=== PATIENT | male | born 1945 | race Caucasian/White ===

== ENCOUNTER 2019-08-01 13:35 | Emergency (ER) | payer MEDICARE, MEDICAID ==
[~2019-08-01] VITALS: Ht 182.9 cm; Wt 122.7 kg
[2019-08-01 14:57] LABS: BASOPHILS # (AUTO) 0.1 X10'3 (0-0.2); BASOPHILS % (AUTO) 0.6 % (0-1); EOSINOPHILS # (AUTO) 0.1 X10'3 (0-0.9); EOSINOPHILS % (AUTO) 0.6 % (0-6); HEMATOCRIT 47.2 % (42.0-52.0); HEMOGLOBIN 16.5 g/dl (14.0-17.9); LYMPHOCYTES # (AUTO) 1.1 X10'3 (1.1-4.8); LYMPHOCYTES % (AUTO) 12.1 % (21-51); MEAN CORPUSCULAR VOLUME 97.2 FL (78-98); MEAN PLATELET VOLUME 8.5 FL (7.4-10.4); MONOCYTES # (AUTO) 0.8 X10'3 (0-0.9); MONOCYTES % (AUTO) 8.4 % (2-12); NEUTROPHILS # (AUTO) 7.1 X10'3 (1.8-7.7); NEUTROPHILS % (AUTO) 78.3 % (42-75); PLATELET COUNT 135 X10'3 (140-440); RED BLOOD COUNT 4.86 X10'6 (4.70-6.10); RED CELL DISTRIBUTION WIDTH 14.1 % (11.5-14.5); WHITE BLOOD COUNT 9.1 X10'3 (4.5-11.0)
[2019-08-01 15:13] LABS: ALANINE AMINOTRANSFERASE 30 U/L (12-78); ALBUMIN 3.4 G/DL (3.4-5.0); ALBUMIN/GLOBULIN RATIO 0.9 (1.1-1.5); ALKALINE PHOSPHATASE 104 IU/L (46-116); ANION GAP 10 (8-16); ASPARTATE AMINO TRANSFERASE 48 U/L (10-37); BILIRUBIN,TOTAL 0.8 MG/DL (0.1-1.0); BLOOD UREA NITROGEN 19 MG/DL (7-18); BUN/CREATININE RATIO 16.2 (5.4-32.0); CALCIUM 9.5 MG/DL (8.5-10.1); CHLORIDE 102 MMOL/L (99-107); CREATININE 1.17 MG/DL (0.60-1.10); GLUCOSE 119 MG/DL (70-104); POTASSIUM 4.3 MMOL/L (3.5-5.1); SODIUM 141 MMOL/L (135-145); TOTAL CARBON DIOXIDE 29.4 MMOL/L (24-32); TOTAL PROTEIN 7.3 G/DL (6.4-8.2); eGFR 61 ML/MIN
[2019-08-01] MEDS ORDERED: iohexol 350MG/ML 100ml bottle IV ONE (15:25)
[2019-08-01] MEDS ORDERED: HYDROcodone/acetaminophen 5mg/325mg tablet PO ONE (16:20)
--- NOTE | 2019-08-01 16:39 | NUR ---
PT STOOD AT BEDSIDE USED URINAL WITH ASSISTANCE TO PROVIDE SAMPLE PER ORDERS. PT UP TO SIDE OF BED, PT REPORTS LOW BACK PAIN WITH SITTING TO STANDING, ONCE STANDING PT REPORTS HEAVINESS TO BILATERAL QUADTRICEPS, TIGHTNESS/CRAMPING TO POSTERIOR UPPER LEGS AFTER TAKING A 3-4 STEPS, AND GENERAL WEAKNESS AND TINGLING TO BILATERAL FULL LEGS, PT ONLY ABLE TO AMBULATE APPROX 12 FT. MEDICATD PT WITH [facility]CO FOR BACK PAIN AND NOTIFIED NORMAN MONAHAN
[2019-08-01] MEDS ORDERED: WALKERFR (16:59)
[2019-08-01 17:00] VITALS: BP 149/74
[2019-08-01 17:00] LABS: CLARITY,URINE SLIGHTLY CLOUDY (Clear); GLUCOSE, URINE NEGATIVE (Neg); KETONES,URINE 15 mg/dl (Neg); LEUKOCYTE ESTERASE ,URINE NEGATIVE (Neg); NITRITES, URINE NEGATIVE (Neg); OCCULT BLOOD,URINE MODERATE (Neg); PROTEIN,URINE TRACE mg/dl (Neg); UROBILINOGEN,URINE 0.2 E.U/dL (0.2-1.0)
[2019-08-01 17:05] LABS: UA COLLECTION TYPE VOIDED
[2019-08-01 17:06] LABS: COLOR,URINE DARK YELLOW (Yellow)
[2019-08-01 17:08] LABS: MUCUS STRANDS MANY /LPF (Neg); SQUAMOUS EPITHELIAL CELL,UR FEW /LPF (FEW)
[2019-08-01 17:10] LABS: RBC,URINE 0-2 /HPF (0-2)
[2019-08-01 17:11] LABS: BACTERIA,URINE 1+ /HPF (Neg)
[2019-08-02] MEDS ORDERED: WARF-55 PO ×2 (13:23)
[2019-08-02] MEDS ORDERED: FLO0.4C PO (13:23)
[2019-08-02] MEDS ORDERED: FLEC100T PO (13:23)
[2019-08-02] MEDS ORDERED: ROSU20TA31 PO (13:23)
[2019-08-02] MEDS ORDERED: RANI150T8 PO (13:23)
[2019-08-02] MEDS ORDERED: ALLO300T8 PO (13:23)
[2019-08-02] MEDS ORDERED: CARV25TA2 PO (13:23)
[2019-08-02] MEDS ORDERED: NITR0.4T48 SL (13:31)
[2019-08-02] MEDS ORDERED: THIA100T73 PO (13:31)
[2019-08-02] MEDS ORDERED: FOLI0.4T2 PO (13:31)
== END 2019-08-01 17:50 | disposition home or self-care (01) ==
LOC: ER 13:35
DX: M54.5 Low back pain (principal); R53.1 Weakness; I48.91 Unspecified atrial fibrillation; I50.9 Heart failure, unspecified; J44.9 Chronic obstructive pulmonary disease, unspecified; F10.99 Alcohol use, unspecified with unspecified alcohol-induced disorder; Z79.899 Other long term (current) drug therapy; Y90.9 Presence of alcohol in blood, level not specified
CPT/HCPCS: 36415; 71045; 71275; 74175; 80053; 81001; 83880; 84484; 85025; 85610; 87077; 87088; 87186; 93005; 99284; Q9967

== ENCOUNTER 2019-08-02 12:05 | Inpatient (IN) | payer MEDICARE, MEDICAID ==
[~2019-08-02] VITALS: Ht 182.9 cm; Wt 122.7 kg
[~2019-08-02 12:05] MED LIST: WALKERFR
[2019-08-02] MEDS ORDERED: WARF-55 PO ×2 (13:23)
[2019-08-02] MEDS ORDERED: FLEC100T PO (13:23)
[2019-08-02] MEDS ORDERED: CARV25TA2 PO (13:23)
[2019-08-02] MEDS ORDERED: ALLO300T8 PO (13:23)
[2019-08-02] MEDS ORDERED: ROSU20TA31 PO (13:23)
[2019-08-02] MEDS ORDERED: RANI150T8 PO (13:23)
[2019-08-02] MEDS ORDERED: FLO0.4C PO (13:23)
[2019-08-02] MEDS ORDERED: NITR0.4T48 SL (13:31)
[2019-08-02] MEDS ORDERED: THIA100T73 PO (13:31)
[2019-08-02] MEDS ORDERED: FOLI0.4T2 PO (13:31)
[2019-08-02] MEDS ORDERED: HYDROcodone/acetaminophen 5mg/325mg tablet PO ONE (14:45)
[2019-08-02 14:55] LABS: BASOPHILS # (AUTO) 0.1 X10'3 (0-0.2); BASOPHILS % (AUTO) 0.7 % (0-1); EOSINOPHILS # (AUTO) 0.1 X10'3 (0-0.9); HEMATOCRIT 46.6 % (42.0-52.0); HEMOGLOBIN 15.9 g/dl (14.0-17.9); LYMPHOCYTES # (AUTO) 1.2 X10'3 (1.1-4.8); LYMPHOCYTES % (AUTO) 11.7 % (21-51); MEAN CORPUSCULAR HEMOGLOBIN 33.6 PG (27.0-31.0); MEAN CORPUSCULAR HGB CONC 34.1 g/dL (33.0-36.5); MEAN CORPUSCULAR VOLUME 98.8 FL (78-98); MEAN PLATELET VOLUME 8.5 FL (7.4-10.4); MONOCYTES # (AUTO) 1.1 X10'3 (0-0.9); MONOCYTES % (AUTO) 10.5 % (2-12); NEUTROPHILS # (AUTO) 7.7 X10'3 (1.8-7.7); NEUTROPHILS % (AUTO) 76.1 % (42-75); PLATELET COUNT 131 X10'3 (140-440); RED BLOOD COUNT 4.72 X10'6 (4.70-6.10); RED CELL DISTRIBUTION WIDTH 14.2 % (11.5-14.5); WHITE BLOOD COUNT 10.1 X10'3 (4.5-11.0)
[2019-08-02 15:05] LABS: ALANINE AMINOTRANSFERASE 35 U/L (12-78); ALBUMIN 3.4 G/DL (3.4-5.0); ALBUMIN/GLOBULIN RATIO 0.9 (1.1-1.5); ALKALINE PHOSPHATASE 105 IU/L (46-116); ANION GAP 6 (8-16); ASPARTATE AMINO TRANSFERASE 109 U/L (10-37); BILIRUBIN,TOTAL 0.7 MG/DL (0.1-1.0); BLOOD UREA NITROGEN 27 MG/DL (7-18); BUN/CREATININE RATIO 20.8 (5.4-32.0); CALCIUM 9.3 MG/DL (8.5-10.1); CHLORIDE 102 MMOL/L (99-107); GLUCOSE 107 MG/DL (70-104); POTASSIUM 3.9 MMOL/L (3.5-5.1); SODIUM 139 MMOL/L (135-145); TOTAL CARBON DIOXIDE 30.9 MMOL/L (24-32); TOTAL PROTEIN 7.4 G/DL (6.4-8.2); eGFR 54 ML/MIN
[2019-08-02 15:15] LABS: MAGNESIUM 2.1 MG/DL (1.5-2.4)
--- NOTE | 2019-08-02 15:38 | NUR ---
Pt is awaiting Hospitalist to complete admission process.
[2019-08-02 16:12] LABS: CLARITY,URINE SLIGHTLY CLOUDY (Clear); COLOR,URINE YELLOW (Yellow); GLUCOSE, URINE NEGATIVE (Neg); KETONES,URINE 15 mg/dl (Neg); LEUKOCYTE ESTERASE ,URINE NEGATIVE (Neg); NITRITES, URINE NEGATIVE (Neg); OCCULT BLOOD,URINE MODERATE (Neg); PH,URINE 5.5 (4.8-8.0); PROTEIN,URINE 30 mg/dl (Neg)
[2019-08-02 16:15] LABS: UA COLLECTION TYPE CLN CATCH MIDSTREAM
[2019-08-02 16:20] LABS: BACTERIA,URINE 1+ /HPF (Neg); FINE GRANULAR CAST 0-3 /LPF (NEGATIVE); RBC,URINE 0-2 /HPF (0-2); SQUAMOUS EPITHELIAL CELL,UR MODERATE /LPF (FEW)
--- NOTE | 2019-08-02 16:30 | NUR ---
Hospitalist is with the patient at the bedside with the patient and family members.
--- NOTE | 2019-08-02 17:02 | NUR ---
Pt repositioned in the bed. Pt is awaiting admission bed assignment.
[2019-08-02] MEDS ORDERED: magnesium hydroxide 30ml (MOM) UD suspension PO PRN (17:30)
[2019-08-02] MEDS ORDERED: acetaminophen 325mg tablet PO PRN (17:30)
[2019-08-02] MEDS ORDERED: mag hydrox/Alum hydrox/simeth 30ml oral suspension PO PRN (17:30)
[2019-08-02] MEDS ORDERED: ondansetron/PF 4mg/2ml inj IV PRN (17:30)
--- NOTE | 2019-08-02 17:41 | NUR ---
Pt transported via gurney with the side rails raised to x-ray.
[2019-08-02] MEDS ORDERED: warfarin 5mg tablet PO SCH (17:55)
[2019-08-02] MEDS ORDERED: nitroGLYCERIN 0.4mg SUBLingual tab SL PRN (17:55)
[2019-08-02] MEDS: normal saline 1000ml 1,000 ML IV SCH (18:10)
--- NOTE | 2019-08-02 18:43 | NUR ---
Attempted to phone report to the admitting floor. Receiving RN unable to receive report at this time. Pt repositioned in bed and given fresh warm blankets.
[2019-08-02 19:30] VITALS: BP 142/79
--- NOTE | 2019-08-02 19:30 | NUR ---
received report from THEATER TECHNICIAN. PT is alert and oriented x4. PT transferred to ortho floor via rney.
[2019-08-02] MEDS: famotidine 20mg tablet PO SCH (20:46)
[2019-08-02] MEDS: carVEDilol 12.5mg tablet PO SCH (20:46)
[2019-08-02] MEDS: warfarin 7.5mg tablet PO SCH (20:50)
[2019-08-02] MEDS: flecainide 50mg tablet PO SCH (20:51)
[2019-08-02 22:00] VITALS: BP 142/78
[2019-08-03] MEDS: normal saline 1000ml 1,000 ML IV SCH (03:46)
[2019-08-03 05:41] LABS: BASOPHILS % (AUTO) 0.3 % (0-1); EOSINOPHILS # (AUTO) 0.3 X10'3 (0-0.9); EOSINOPHILS % (AUTO) 3.9 % (0-6); HEMATOCRIT 40.5 % (42.0-52.0); HEMOGLOBIN 13.9 g/dl (14.0-17.9); LYMPHOCYTES # (AUTO) 1.3 X10'3 (1.1-4.8); LYMPHOCYTES % (AUTO) 18.9 % (21-51); MEAN CORPUSCULAR HEMOGLOBIN 34.2 PG (27.0-31.0); MEAN CORPUSCULAR HGB CONC 34.2 g/dL (33.0-36.5); MEAN CORPUSCULAR VOLUME 100.1 FL (78-98); MEAN PLATELET VOLUME 8.6 FL (7.4-10.4); MONOCYTES # (AUTO) 0.6 X10'3 (0-0.9); MONOCYTES % (AUTO) 9.2 % (2-12); NEUTROPHILS # (AUTO) 4.6 X10'3 (1.8-7.7); NEUTROPHILS % (AUTO) 67.7 % (42-75); PLATELET COUNT 111 X10'3 (140-440); RED BLOOD COUNT 4.05 X10'6 (4.70-6.10); RED CELL DISTRIBUTION WIDTH 14.6 % (11.5-14.5); WHITE BLOOD COUNT 6.8 X10'3 (4.5-11.0)
[2019-08-03 05:54] LABS: ALBUMIN 2.8 G/DL (3.4-5.0); ANION GAP 6 (8-16); BLOOD UREA NITROGEN 17 MG/DL (7-18); BUN/CREATININE RATIO 17.5 (5.4-32.0); CALCIUM 8.7 MG/DL (8.5-10.1); CHLORIDE 104 MMOL/L (99-107); CREATININE 0.97 MG/DL (0.60-1.10); GLUCOSE 106 MG/DL (70-104); POTASSIUM 3.5 MMOL/L (3.5-5.1); SODIUM 141 MMOL/L (135-145); TOTAL CARBON DIOXIDE 30.7 MMOL/L (24-32); eGFR 76 ML/MIN
[2019-08-03 06:00] VITALS: BP 157/64
[2019-08-03] MEDS: famotidine 20mg tablet PO SCH ×2 (08:10→19:41)
[2019-08-03] MEDS: folic acid 1mg tablet PO SCH (08:10)
[2019-08-03] MEDS: carVEDilol 12.5mg tablet PO SCH ×2 (08:10→19:41)
[2019-08-03] MEDS: atorvastatin 20mg tablet PO SCH (08:11)
[2019-08-03] MEDS: tamsulosin 0.4mg capsule PO SCH (08:11)
[2019-08-03] MEDS: thiamine 100mg tablet PO SCH (08:11)
[2019-08-03] MEDS: allopurinol 300 MG tablet PO SCH (08:11)
[2019-08-03] MEDS: HYDROcodone/acetaminophen 5mg/325mg tablet PO PRN ×2 (08:15→22:40)
[2019-08-03] MEDS: flecainide 50mg tablet PO SCH ×2 (09:49→19:41)
[2019-08-03 10:00] VITALS: BP 84/48
[2019-08-03 11:59] VITALS: BP 99/57
--- NOTE | 2019-08-03 15:35 | NUR ---
Patient in room ORTHO 4010. I have received report from JOHANNA FRANCES and had the opportunity to ask questions and assume patient care.
[2019-08-03 18:00] VITALS: BP 102/54
--- NOTE | 2019-08-03 18:10 | NUR ---
Problems reprioritized. Patient report given, questions answered & plan of care reviewed with CONNOR FRANCES AND DANYA FRANCES.
[2019-08-03] MEDS: warfarin 7.5mg tablet PO SCH (19:41)
[2019-08-03 19:42] VITALS: BP 97/55
[2019-08-03 22:01] VITALS: BP 102/60
[2019-08-04 05:28] LABS: ALBUMIN 2.5 G/DL (3.4-5.0); ANION GAP 5 (8-16); BLOOD UREA NITROGEN 13 MG/DL (7-18); BUN/CREATININE RATIO 14.3 (5.4-32.0); CALCIUM 8.6 MG/DL (8.5-10.1); CHLORIDE 105 MMOL/L (99-107); CREATININE 0.91 MG/DL (0.60-1.10); GLUCOSE 94 MG/DL (70-104); POTASSIUM 3.7 MMOL/L (3.5-5.1); SODIUM 141 MMOL/L (135-145); TOTAL CARBON DIOXIDE 31.4 MMOL/L (24-32); eGFR 82 ML/MIN
[2019-08-04 05:35] LABS: BASOPHILS % (AUTO) 0.5 % (0-1); EOSINOPHILS # (AUTO) 0.3 X10'3 (0-0.9); EOSINOPHILS % (AUTO) 5.5 % (0-6); HEMATOCRIT 38.9 % (42.0-52.0); HEMOGLOBIN 13.3 g/dl (14.0-17.9); LYMPHOCYTES # (AUTO) 1.6 X10'3 (1.1-4.8); LYMPHOCYTES % (AUTO) 29.1 % (21-51); MEAN CORPUSCULAR HEMOGLOBIN 34.2 PG (27.0-31.0); MEAN CORPUSCULAR HGB CONC 34.2 g/dL (33.0-36.5); MEAN PLATELET VOLUME 8.7 FL (7.4-10.4); MONOCYTES # (AUTO) 0.6 X10'3 (0-0.9); MONOCYTES % (AUTO) 10.2 % (2-12); NEUTROPHILS % (AUTO) 54.7 % (42-75); PLATELET COUNT 113 X10'3 (140-440); RED BLOOD COUNT 3.89 X10'6 (4.70-6.10); RED CELL DISTRIBUTION WIDTH 14.4 % (11.5-14.5); WHITE BLOOD COUNT 5.4 X10'3 (4.5-11.0)
[2019-08-04 06:00] VITALS: BP 124/70
--- NOTE | 2019-08-04 06:19 | NUR ---
Problems reprioritized. Patient report given, questions answered & plan of care reviewed with JUAN DANIEL Blas.
--- NOTE | 2019-08-04 06:30 | NUR ---
Patient in room ORTHO 4010. I have received report from Ailyn FRANCES and had the opportunity to ask questions and assume patient care.
[2019-08-04] MEDS: carVEDilol 12.5mg tablet PO SCH (08:22)
[2019-08-04] MEDS: tamsulosin 0.4mg capsule PO SCH (08:22)
[2019-08-04] MEDS: famotidine 20mg tablet PO SCH (08:22)
[2019-08-04] MEDS: folic acid 1mg tablet PO SCH (08:23)
[2019-08-04] MEDS: flecainide 50mg tablet PO SCH (08:23)
[2019-08-04] MEDS: HYDROcodone/acetaminophen 5mg/325mg tablet PO PRN (08:23)
[2019-08-04] MEDS: thiamine 100mg tablet PO SCH (08:23)
[2019-08-04] MEDS: allopurinol 300 MG tablet PO SCH (08:23)
[2019-08-04] MEDS: atorvastatin 20mg tablet PO SCH (08:26)
[2019-08-04 10:00] VITALS: BP 85/46
--- NOTE | 2019-08-04 13:40 | NUR ---
Patient discharged with brother taken out in wheel chair. Four wheel walker provided by CM. RAJPUT to follow.
[2019-08-04] MEDS ORDERED: warfarin 5mg tablet PO SCH (17:55)
== END 2019-08-04 13:28 | disposition home health service (06) | DRG 683 ==
LOC: ER 12:05 → ED HOLD 17:29 → ORTHO 4S 19:15
PROVIDERS: ADMIT Family Medicine; ATTEND Family Medicine
DX: N17.0 Acute kidney failure with tubular necrosis (principal); I50.22 Chronic systolic (congestive) heart failure; I48.20 Chronic atrial fibrillation, unspecified; R62.7 Adult failure to thrive; E86.0 Dehydration; F10.20 Alcohol dependence, uncomplicated; F17.210 Nicotine dependence, cigarettes, uncomplicated; J44.9 Chronic obstructive pulmonary disease, unspecified; N40.0 Benign prostatic hyperplasia without lower urinary tract symptoms; R29.6 Repeated falls; K21.9 Gastro-esophageal reflux disease without esophagitis
CPT/HCPCS: 36415; 71045; 72100; 73502; 73660; 80048; 80053; 81001; 83735; 83880; 84443; 84484; 85025; 85610; 87081; 87088; 93005; 97110; 97112; 97116; 97162; 97530; 99285; G0378; J7030

== ENCOUNTER → 2023-10-18 | Day surgery (SDC) | payer MEDICARE ==
[~2023-10-18] VITALS: Ht 182.9 cm; Wt 129.4 kg
[2023-10-18] VITALS (9 sets, daily range): BP systolic 93–137; BP diastolic 52–77; PULSE 62–130; RESP 12; TEMP 98.4; O2SAT 94–99
[~2023-10-18] MED LIST changes: +ALLO300T8 PO; +AMI200T PO; +ATOR40TA72 PO; +CARV25TA2 PO; +DULO60CA65 PO; +FINA5TAB11 PO; +FLEC100T PO; +FLO0.4C PO; +FOLI0.4T6 PO; +FURO20TA4 PO; +HYDR-3972; +METF-1203 PO; +METO100T14 PO; +NITR0.4T48 SL; +POLY17PO10 PO; +RIVA20TA PO; +ROSU20TA73 PO; +SENN-263 PO; +THIA100T73 PO; -WALKERFR; +WARF-55 PO; +melatonin PO
[2023-10-18] MEDS: normal saline 1000ml 1,000 ML IV SCH (12:50)
[2023-10-18] MEDS: MIDAZolam 1mg/ml 10ml vial IV ONE (16:06)
[2023-10-18] MEDS: fentaNYL/PF 50MCG/1 ML 2ML syringe IV ONE (16:07)
== END | disposition home or self-care (01) ==
LOC: SSTAY O 12:25
PROVIDERS: ATTEND Student in an Organized Health Care Education/Training Program
DX: I48.0 Paroxysmal atrial fibrillation (principal); I11.0 Hypertensive heart disease with heart failure; I50.9 Heart failure, unspecified; E78.5 Hyperlipidemia, unspecified; I65.29 Occlusion and stenosis of unspecified carotid artery; J44.9 Chronic obstructive pulmonary disease, unspecified; G47.33 Obstructive sleep apnea (adult) (pediatric); E11.51 Type 2 diabetes mellitus with diabetic peripheral angiopathy without gangrene; I70.203 Unspecified atherosclerosis of native arteries of extremities, bilateral legs; Z79.01 Long term (current) use of anticoagulants; Z79.899 Other long term (current) drug therapy
CPT/HCPCS: 82948; 92960; 93005; J2250; J3010; J7030; A4620